=== PATIENT | male | born 1965 | race Caucasian/White ===

== ENCOUNTER 2023-09-14 14:17 | Emergency (ER) | payer OTHER, SELFPAY ==
[2023-09-14 14:19] VITALS: BP 140/89
--- NOTE | 2023-09-14 16:11 | ED.GENMED ---
History of Present Illness
General
Chief Complaint: Abdominal Symptoms
Source: patient
Exam Limitations: none
Time Seen by Provider: 09/14/23 15:09
Nursing documentation reviewed up to this point in time: agreed with
History of Present Illness
History of Present Illness:
58-year-old male past medical history of NIDDM currently taking metformin, hypertension presenting to the emergency department today with concerns of ongoing diarrhea over the past 5 days initially started while he was on vacation in [place]. Denies
any fevers chest pain shortness of breath has had nausea no vomiting. Has been able to tolerate fluids but has not had any appetite and has not been eating over the past few days.
Past History
Past History
ED Past Medical History: Asthma, HTN and NIDDM (newly diagnosed 12/04/18, started on Metformin)
ED Past Surgical History: None
Social History
Tobacco: Non-smoker
Personal:
Living: with family
Employment: Employed
Review of Systems
Review of Systems
Allergies reviewed?: Yes
All Other Systems: ROS reviewed and negative except as documented in HPI and ROS
Phy Exam
Physical Exam
Physical Exam:
GENERAL: Alert , in no apparent distress
EYE: pupils equal and reactive
NECK: Supple, no significant adenopathy.
ENT: o/p clr, mmm.
CARDIAC: Regular rate and rhythm .
LUNGS: Clear breath sounds bilaterally, no acute respiratory distress, no wheezes/rales/rhonchi
ABDOMEN: Soft, without focal tenderness, no r/g, no cvat
NEUROLOGICAL: Alert and oriented, no focal neuro deficits
SKIN: Warm and dry, skin intact.
MUSCULOSKELETAL: No edema, well perfused.
PSYCH: Normal and appropriate interaction.
Course
Orders/Labs/Results
Orders:
Orders
09/14/23 15:29
0.9% Sodium Chloride 1000 ml [Nss] 1,000 ml IV BOLUS
Ondansetron Injectable [Zofran] 4 mg IV NOW STA
09/14/23 16:12
Complete Blood Count/With Diff Urgent
Comprehensive Metabolic Panel Urgent
Lipase Urgent
09/14/23 17:08
Azithromycin [Zithromax] 500 mg PO NOW STA
09/14/23 17:52
Urinalysis Reflex To Culture Urgent
Date Specimen was Collected: 09/14/23
Time Specimen was Collected: 17:50
Urine Microscopic Reflex Cult Urgent
C DIFF [C difficile Antigen & Toxins] Urgent
RIE Source: Feces/Stool
Specimen Description:
Date Specimen was Collected: 09/14/23
Time Specimen was Collected: 17:50
Stool Culture Urgent
REI Source: Feces/Stool
Specimen Description:
Date Specimen was Collected: 09/14/23
Time Specimen was Collected: 17:50
Abnormal Lab Results
09/14/23 09/14/23
16:12 17:52
WBC 11.3 H 10^3/uL
(4.8-10.8)
MPV 11.8 H fL
(7.4-10.4)
Abs Immat Gran (auto) 0.1 H 10^3/uL
(0-0.05)
Absolute Neuts (auto) 7.5 H 10^3/uL
(1.4-6.5)
Absolute Monos (auto) 1.6 H 10^3/uL
(0.1-0.6)
Lymphocytes % 16.1 L %
(20.5-51.1)
Monocytes % 13.8 H %
(1.7-9.3)
Chloride 108 H mmol/L
(98-107)
Leukocyte Esterase Rfl Trace A
(Negative)
Urine Bacteria (Reflex) Few A
(Negative)
09/14/23 16:12
09/14/23 16:12
Vital Signs
Initial and Last Documented VS:
Initial Vital Signs
Temp Pulse Resp BP Pulse Ox
98.6 F 114 20 140/89 98
09/14/23 14:19 09/14/23 14:19 09/14/23 14:19 09/14/23 14:19 09/14/23 14:19
Last Documented Vital Signs
Temp Pulse Resp BP Pulse Ox
98.6 F 94 20 143/94 98
09/14/23 14:19 09/14/23 19:32 09/14/23 19:32 09/14/23 19:32 09/14/23 19:32
MDM/Problems Addressed
MDM/Problems Addressed:
58-year-old male presenting to the emergency department today with concerns of diarrhea over the past 5 days starting in [place]. No blood in the diarrhea no fevers afebrile here mildly tachycardic labs were sent as well as a liter of fluids started
also given dose of Zofran. He has had nausea no vomiting but has been able to tolerate some fluids. Patient doing well patient doing well in the ER here white blood cell count of 11.3 otherwise labs unremarkable was given fluids and Zofran with
improvement. Patient peers stable for discharge was started on antibiotics. Return precautions given.
*Critical Care Note
Total Time (30-74mins, 75-104mins- exclusive of procedures): Not Applicable
ED Attending Note
-
Portions of this chart may have been created with voice recognition software.� Occasional wrong word or��sound alike� substitutions may have occurred due to the inherent limitations of voice recognition software.
Discharge Plan
Departure
Patient Disposition: Home (Routine Discharge)
Date of Disposition: 09/14/23
Time of Disposition: 18:41
Patient with high blood pressure during this ER visit?: No
Condition: Good
Covid-19: Not Applicable
Discharge Problem:
Diarrhea
Instructions: [place] Diet, Acute Diarrhea
Prescriptions:
New
azithromycin 500 mg tablet
500 mg PO DAILY 2 Days Qty: 2 0RF
ondansetron 4 mg tablet,disintegrating
4 mg PO Q8H PRN (Reason: nausea and vomiting) Qty: 7 0RF
No Action
losartan 50 MG tablet
50 mg PO DAILY
chlorthalidone 25 MG tablet
25 mg PO DAILY
omeprazole 40 MG capsule,delayed release(DR/EC)
40 mg PO DAILY
amlodipine 10 MG tablet
10 mg PO DAILY
budesonide-formoterol [Symbicort] 1 PUFF HFA aerosol inhaler
3 puff inhalation TID
azithromycin 250 MG tablet
250 mg PO DAILY
Patient Comments:
12/18/2018 day 2 of 5
fluticasone propionate 1 SPRAY spray,suspension
1 spray intranasal DAILY
metformin 500 MG tablet extended release 24 hr
500 mg PO DAILY
escitalopram oxalate 10 MG tablet
10 mg PO DAILY
ipratropium-albuterol 3 ML solution for nebulization
3 ml inhalation QIDPRN PRN (Reason: cough) Qty: 30 0RF
Referrals:
Torsten Nieves CRNP [Family Provider] -
Activity Restrictions/Additional Instructions:
You came to emergency department today with concerns of diarrhea. Here you had a reassuring assessment. Please well-closed with the primary care doctor for any ongoing symptoms. Please take azithromycin 1 tab once daily for the next 2 days.
Return to the emergency department for any worsening, new or concerning symptoms.
Interventions
Interventions:
*Risk Screen - Suicide Last Done: 09/14/23 14:19
*General Assessment Last Done: 09/14/23 14:19
*Neglect/Abuse Screening Last Done: 09/14/23 14:19
ED- Fall Risk Assessment Last Done: 09/14/23 16:33
*ED COVID-19 Vaccine History Last Done: 09/14/23 17:38
*Nursing Disposition Last Done: 09/14/23 19:32
SF-Rbcbrn-Znymboaagv Assessment Last Done: 09/14/23 16:33
Discharge Date and Time
Discharge Date/Time: 09/14/23 19:33
Print Language: SLOVENIAN
[2023-09-14] MEDS: NSS 1000 IV (16:17)
[2023-09-14] MEDS: ZOFRAN 4 MG IV (16:18)
[2023-09-14 16:26] LABS: % Basophils 0.2 % (0-2); % Eosinophils 2.9 % (0-6); % Immature Granulocytes 0.5 % (0-0.5); % Lymphocytes 16.1 % (20.5-51.1); % Monocytes 13.8 % (1.7-9.3); % Neutrophils 66.5 % (42.2-75.2); Absolute Eosinophils 0.3 10^3/uL (0-0.7); Absolute Immature Granulocytes 0.1 10^3/uL (0-0.05); Absolute Lymphocytes 1.8 10^3/uL (1.2-3.4); Absolute Monocytes 1.6 10^3/uL (0.1-0.6); Absolute Neutrophils 7.5 10^3/uL (1.4-6.5); Hematocrit 41.8 % (39.0-52.0); Hemoglobin 15.3 g/dL (13.0-18.0); Mean Corp Hgb Conc. 36.6 g/dL (33.0-37.0); Mean Corpuscular Hgb 29.4 pg (27.0-31.0); Mean Corpuscular Volume 80.2 fL (80.0-94.0); Mean Platelet Volume 11.8 fL (7.4-10.4); Nucleated Red Blood Cells % 0 % (-); Platelet Count 268 10^3/uL (130-400); Red Blood Cell Count 5.21 10^6/uL (4.70-6.10); Red Cell Dist. Width 13.7 % (11.5-14.5); White Blood Cell Count 11.3 10^3/uL (4.8-10.8)
[2023-09-14 16:40] LABS: ALT (SGPT) 38 U/L (0-50); AST (SGOT) 27 U/L (17-59); Alkaline Phosphatase 64 U/L (38-126); Blood Urea Nitrogen 12 mg/dl (9-20); Calcium 9.6 mg/dl (8.4-10.2); Carbon Dioxide 22 mmol/L (22-30); Chloride 108 mmol/L (98-107); Glucose 92 mg/dl (70-99); Lipase 261 U/L (23-300); Potassium 3.5 mmol/L (3.5-5.1); Sodium 141 mmol/L (135-145); Total Bilirubin 0.6 mg/dl (0.2-1.3); eGFR > 60.00
[2023-09-14] MEDS: ZITHROMAX 500 MG PO (17:30)
[2023-09-14 18:04] LABS: Urine Albumin Negative (Neg - Trace); Urine Bilirubin Negative (Negative); Urine Character Clear (Clear); Urine Color Yellow; Urine Glucose Negative (Negative); Urine Ketone Negative (Negative); Urine Leukocyte Trace (Negative); Urine Nitrite Negative (Negative); Urine Occult Blood Negative (Negative); Urine Urobilinogen Negative (Neg - 1+)
[2023-09-14 18:16] LABS: Urine Bacteria Few (Negative); Urine Mucus Moderate; Urine Squamous Cell 0-2 /LPF (Few)
[2023-09-14 19:32] VITALS: BP 143/94
== END 2023-09-14 19:33 | disposition home or self-care (01) ==
LOC: EMR 14:17
PROVIDERS: Physician Assistant; EMERGENCY PHYSICIAN Emergency Medicine; FAMILY PHYSICIAN Nurse Practitioner Gerontology
DX: R19.7 Diarrhea, unspecified (principal); I10 Essential (primary) hypertension; E11.9 Type 2 diabetes mellitus without complications; J45.909 Unspecified asthma, uncomplicated
CPT/HCPCS: 99284; 96374; 96361; 80053; 81003; 81015; 83690; 85025; 87045; 87046; 87324; 87427; 87449